=== PATIENT | male | born 1995 | race African-American/Black ===

== ENCOUNTER 2017-09-03 11:41 | Day surgery (SDC) | payer OTHER, SELFPAY ==
[2017-09-02 12:38] VITALS: BMI 33.2
[2017-09-03] VITALS (10 sets, daily range): BP systolic 145–163; BP diastolic 78–101; PULSE 70–86; RESP 10–20; TEMP 36.1–37.2; O2SAT 94–99; BMI 33.2
--- NOTE | 2017-09-03 12:21 | PM.PREOP ---
Pre-operative Note Interval Note Pre-op Check: Yes History & Physical Reviewed by Physician and Yes Exam Performed Changes: No
[2017-09-03] MEDS: LACTATED RINGERS 1,000 ML 42 ML IV (13:45)
[2017-09-03] MEDS: CEFAZOLIN 2 GM/100 ML FROZ.PIGGY IV (14:25)
--- NOTE | 2017-09-03 14:49 | SUR.OPER ---
Supine on gel mattress OR table, head on one pillow, safety strap to abdomen over blanket. Tape to lower legs over blanket to secure. Left arm secured on padded armboard <90 abduction. Right arm on wide padded armboard in surgeon control.
--- NOTE | 2017-09-03 15:45 | PM.OP.1 ---
Operative Date/Time/Diagnoses Date of procedure: 09/03/17 Time of procedure: 14:45 Pre-op diagnosis: Right index finger radial digital nerve laceration Post-op diagnosis: same Procedure & Clinicians Procedure: Right index finger laceration exploration and washout Right index finger radial digital nerve repair Same procedure as scheduled: Yes Indications: This is a 22-year-old male who sustained a laceration to his right index finger on 31 August 2017 when he was working with a metal can. It was irrigated and closed in the emergency room he had dense anesthesia to the radial aspect of the index finger but had good flexion at the DIP and PIP with a well-perfused finger. He was indicated for digital nerve repair secondary to it being proximal to the DIP joint and the radial aspect of the index finger. The risks, benefits, and alternatives to surgery were discussed. The risks included pain bleeding infection damage to nearby structures lack of symptom relief. I discussed with them that he could expect protective sensation but not normal sensation. I also discussed the risk of hyperesthesias for up to 2 years. He signed consent for Surgeon: Juan Gillespie Click Yes if Unassisted: Yes Anesthesia Type: General Operative Notes Findings: Flexor digitorum profundus tendons were intact although the sheath was slightly cut. There was a partial thickness laceration of the FDS at its insertion on the radial side, this was stable. The radial digital nerve was found to be lacerated but freely mobile and direct repair was easily attained. There was no evidence of purulence Closure Type: primary Specimen(s): none sent Estimated Blood Loss (mL): 2 Blood products transfused: none Tourniquet time (min): 46 Procedure in detail: Patient was met in the preop hold area on the day of the procedure in the operative extremity signed consent was verified he desired to proceed. He was brought to the operating room and surrendered to anesthesia. Once general anesthesia been obtained he was placed supine position all bony prominences well padded. He was then prepped and draped in standard sterile fashion. Surgical time-out was held to confirm the patient procedure identity allergies antibiotics images already agree we proceeded. The Esmarch was used to exsanguinate the limb and the tourniquet was elevated to 200 mm of mercury. Prior sutures were removed and thrown away from the field. I then bluntly dissected with a hemostat identified the prior wound bed. It was clean and there was no evidence of purulence. I then continued to dissect with the hemostat and identified the proximal and distal ends of the digital nerve. I then continued deeper and identified the sheath for the flexor tendons. I opened it and a small window to allow better visualization and the flexor tendons were intact. At that location FDS was found deep inserting onto the bone and there was a small cut at the insertion it was stable. I was careful to delicately manipulate the nerve with the micro forceps I then freed the nerve from its surrounding soft tissue proximally and distally. distally the nerve was not very mobile this was to be expected. After identifying 3 mm of the nerve distally and set proximally I then let the tourniquet down to make certain that there was no significant bleeding coming from the nerve to signify was a blood vessel. There is a small amount of bleeding from the epineurium and I reelevated the tourniquet. I then used sharp scissors to cut the damaged and of the nerve that was able to visualize the nerve fibers on end. I then irrigated the wound copiously. I then placed an 8 0 nylon epineurial stitch on the ulnar aspect of the nerve. Leaving that suture intact after tying the knot I used to retract upward and placed a 2nd suture 180? from the 1st. I the approximate the nerve quite well and was satisfied with the structural integrity of the repair. I straighten the finger completely and found the nerve to remain well as reduced. I then irrigated again and closed the skin with simple nylon sutures. Sterile dressing was then applied and a dorsal extension block splint was placed. Complications: none Condition: stable Disposition: same day surgery Plan for aftercare: Extension block splint in place until 2 weeks. Follow up in 2 weeks for suture removal. We may extend extension block splinting at that time. No x-rays are needed. Occupational therapy will be performed.
[2017-09-03] MEDS: HYDROMORPHONE 2 MG INJ 0.5 MG IV ×2 (16:12→16:25)
--- NOTE | 2017-09-03 16:18 | SUR.PHASEI ---
pt gradually awake, vss, bp high, c/o 10/10 pain medicated with dilaudid.
--- NOTE | 2017-09-03 16:19 | SUR.PHASEI ---
ASSUMED CARE OF PT AT THIS TIME. PT SITTING UP IN BED WITH EYES CLOSED, EASILY AROUSABLE TO VOICE WHEN SPOKEN TO. IV SITE CLEAR AND INFUSING WITHOUT DIFFICULTLY. DRSG TO OPERATIVE HAND C/D/I. PT ABLE TO MOVE OPERATIVE HAND FINGERS, DULL SENSTATION, + STRENGTH, CAP REFILL WNL. PT TOLERATING ORAL INTAKE WITHOUT ANY DIFFICULTLY. PT DENIES ANY NAUSEA. PT APPEARS COMFORTABLE AT THIS TIME.
[2017-09-03] MEDS: OXYCODONE/ACETAMINOPHEN 5/325 TABLET 1 TAB PO (16:49)
== END 2017-09-03 17:15 | disposition home or self-care (01) ==
PROVIDERS: Visit Provider Orthopaedic Surgery
PROC: (CPT 64831; principal; 2017-09-03 13:30)
DX: S64.490A Injury of digital nerve of right index finger, initial encounter (principal); W26.8XXA Contact with other sharp object(s), not elsewhere classified, initial encounter; G47.33 Obstructive sleep apnea (adult) (pediatric)
CPT/HCPCS: 64831; J0690; J1100; J1170; J1885; J2250; J2405; J2704; J3010

== ENCOUNTER → 2019-05-06 11:15 | Outpatient (CLI) | payer OTHER, SELFPAY ==
--- NOTE | 2019-05-06 | DI.MRI.S_ITS ---
PROCEDURE: MR SHOULDER RT WO CON INDICATIONS: Pain in right shoulder TECHNIQUE: Noncontrast oblique coronal T2 fast spin echo with fat saturation, oblique sagittal T1 spin echo and T2 fast spin echo with fat saturation, axial T1 spin echo and T2 fast spin echo with fat saturation through the shoulder. COMPARISON: None. FINDINGS: Image quality: Excellent. Rotator cuff: Supraspinatus tendinopathy and thickening. Partial thickness bursal sided tear is noted involving the junction of the critical zone and footprint image 11/8. Infraspinatus tendinopathy with low-grade bursal surface fraying. The teres minor appears intact. Subscapularis tendon appears intact. No atrophy of the rotator cuff muscles. Mild fatty infiltration of the supraspinatus and infraspinatus muscles Bones and bursae: No bone marrow contusions or fractures. Moderate acromioclavicular joint degeneration. Acromion demonstrates conventional anatomy, without an os acromiale. Mild subacromial-subdeltoid bursitis. Capsule and soft tissues: Labrum: No discrete labral tear identified. Long head of the biceps tendon intact. The rotator interval appears normal, without fibrosis. Coracohumeral ligament intact. IMPRESSION: Supraspinatus tendinopathy and thickening, with partial thickness bursal sided tear at the junction of the critical zone and footprint. Moderate infraspinatus tendinopathy with low-grade bursal surface fraying. Mild subacromial-subdeltoid bursitis Dictated by: Lino Oates M.D. on 05/06/2019 at 11:56 Approved by: Lino Oates M.D. on 05/06/2019 at 12:04
== END ==
PROVIDERS: Referring Provider General Practice; Visit Provider General Practice
DX: M25.511 Pain in right shoulder (principal); M75.111 Incomplete rotator cuff tear or rupture of right shoulder, not specified as traumatic; M75.51 Bursitis of right shoulder; M19.011 Primary osteoarthritis, right shoulder
CPT/HCPCS: 73221